=== PATIENT | male | born 1930 | race Caucasian/White ===

== ENCOUNTER 2017-08-08 15:36 | Inpatient (IN) | payer MEDICARE, OTHER ==
[~2017-08-08] VITALS: Ht 177.8 cm; Wt 116.6 kg
[~2017-08-08 15:36] MED LIST: ALLA266C2 TP; ALLO300T2 PO; ASCO10007 PO; CALC-1062 PO; CLOT15CR4 TP; CYAN500T4 PO; DIGO125T PO; DILT360C32 PO; FURO-144 PO; FURO80TA85 PO; HYDR-551 PO; IBUP-1958 PO; LISI10TA5 PO; METO2.5T2 PO; MULT1TAB11 PO; POTA20PA34 PO; SULF1TAB47 PO; TIOT18CA3 IH; VITA400C68 PO; WARF5TAB77 PO
--- NOTE | 2017-08-08 16:10 | NUR ---
RECIEVED PT TO ED BED 05, ASSISTED VIA WHEELCHAIR. 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 PT C/O 10 PAIN TO BLE. BLE WRAPPED IN KAREN WRAP. NAD VSS RR EVEN AND UNLABORED. KEPT WARM AND COMFORTABLE. SEEN AND EVALUATED BY DR BUTTERFIELD
[2017-08-08] MEDS ORDERED: VANCOMYCIN 1 GM in IV D5W 250 ML IV ONE (16:30)
[2017-08-08] MEDS ORDERED: LEVOFLOXACIN 750 MG /D5W 150ML 150 ML IV ONE ×2 (16:30→16:41)
--- NOTE | 2017-08-08 16:42 | NUR ---
CALLED PHARMACY FOR GWEN THOMAS
[2017-08-08 16:43] LABS: BASOPHILS % (AUTO) 0.7 % (0.0-2.0); EOSINOPHILS # (AUTO) 0.3 /CMM (0.0-0.7); EOSINOPHILS % (AUTO) 5.4 % (0.0-6.0); HEMATOCRIT 40 % (39-51); HEMOGLOBIN 12.8 g/dL (13.5-17.5); LYMPHOCYTES # (AUTO) 1.4 /CMM (0.8-4.8); LYMPHOCYTES % (AUTO) 26.4 % (20.0-44.0); MEAN CORPUSCULAR HEMOGLOBIN 33 PG (26.0-33.0); MEAN CORPUSCULAR HGB CONC 32 g/dl (31.0-36.0); MEAN CORPUSCULAR VOLUME 101 fL (80-96); MONOCYTES # (AUTO) 0.8 /CMM (0.1-1.30); NEUTROPHILS # (AUTO) 2.7 /CMM (1.8-8.9); NEUTROPHILS % (AUTO) 52.5 % (43.0-81.0); PLATELET COUNT (AUTO) 296 /CMM (150-450); RDW COEFFICIENT OF VARIATION 16.6 (11.5-15.0); RED BLOOD CELL COUNT(AUTO) 3.91 MIL/uL (4.5-6.0); WHITE BLOOD COUNT (AUTO) 5.2 K/uL (4.3-11.0)
[2017-08-08 16:53] LABS: CARBON DIOXIDE 35 mmol/L (21-32); CHLORIDE 107 mmol/L (98-107); CREATININE 1.2 mg/dL (0.6-1.3); GLUCOSE 125 mg/dL (74-106); SODIUM SERUM 144 mmol/L (136-145); UREA NITROGEN, BLOOD 18 mg/dL (7-18)
[2017-08-08] MEDS ORDERED: FURO40TA5 PO (16:54)
[2017-08-08] MEDS ORDERED: TRAZ-144 PO (16:54)
[2017-08-08] MEDS ORDERED: FENO48TA PO (16:54)
[2017-08-08] MEDS ORDERED: CRAN500T2 PO (16:54)
[2017-08-08] MEDS ORDERED: ALBU18HF2 IH (16:54)
[2017-08-08] MEDS ORDERED: FOLI1TAB16 PO (16:54)
[2017-08-08] MEDS ORDERED: POTA20TA83 PO (16:54)
[2017-08-08] MEDS ORDERED: TAMS0.4C34 PO (16:54)
[2017-08-08] MEDS ORDERED: DILT30TA2 PO (16:54)
[2017-08-08] MEDS ORDERED: FAMO20TA8 PO (16:54)
[2017-08-08] MEDS ORDERED: HYDR-552 PO ×2 (16:54)
[2017-08-08] MEDS ORDERED: WARF4TAB6 PO (16:54)
[2017-08-08] MEDS ORDERED: ALBU2.5V38 IH (16:54)
[2017-08-08] MEDS ORDERED: DOCU-141 PO (16:54)
[2017-08-08] MEDS ORDERED: BUME1TAB4 PO (16:54)
[2017-08-08] MEDS ORDERED: POLY119P2 PO (16:54)
[2017-08-08] MEDS ORDERED: CEPH-570 PO (16:54)
[2017-08-08] MEDS ORDERED: CARV3.122 PO (16:54)
[2017-08-08 16:59] LABS: ALANINE AMINOTRANSFERASE 22 U/L (12-78); ALBUMIN 2.9 g/dL (3.4-5.0); ALKALINE PHOSPHATASE 58 U/L (46-116); ASPARTATE AMINOTRANSFERASE 17 U/L (15-37); BILIRUBIN,DIRECT 0.2 mg/dL (0.0-0.2); BILIRUBIN,TOTAL 0.4 mg/dL (0.2-1.0); TOTAL PROTEIN, SERUM 7.1 g/dL (6.4-8.2)
[2017-08-08 17:01] LABS: TROPONIN I < 0.017 ng/mL (0.00-0.056)
[2017-08-08 17:02] LABS: INR 2.64 (0.87-1.13); PROTHROMBIN TIME 27.7 SECS (9.5-12.7)
--- NOTE | 2017-08-08 17:11 | NUR ---
MEDSURGE ROOM 203
[2017-08-08 17:15] LABS: EOSINOPHILS % (MANUAL) 4 % (0-4); LYMPHOCYTES % (MANUAL) 20 % (16-48); MONOCYTES % (MANUAL) 7 % (0-11.0); NEUTROPHILS % (MANUAL) 69 (42-76)
--- NOTE | 2017-08-08 17:33 | NUR ---
REPORT GIVEN TO GUS CORCORAN
--- NOTE | 2017-08-08 17:44 | NUR ---
TRANSFERRED TO FLOOR IN STABLE CONDITION
[2017-08-08] MEDS ORDERED: Z GUARD REMEDY 2 OZ OINT TP PRN (18:00)
[2017-08-08] MEDS ORDERED: ALBUTEROL FS 2.5 MG/3 ML VIAL.NEB IH PRN (18:00)
[2017-08-08] MEDS ORDERED: MAG HYDROX/AL HYDROX/SIMETH 30 ML UDC PO PRN (18:00)
[2017-08-08] MEDS ORDERED: ZOLPIDEM TARTRATE 5 MG TABLET PO PRN (18:00)
[2017-08-08] MEDS ORDERED: ACETAMINOPHEN 325 MG TABLET PO PRN (18:00)
[2017-08-08] MEDS ORDERED: ONDANSETRON HCL/PF 4 MG/2 ML VIAL IVP PRN (18:00)
[2017-08-08] MEDS ORDERED: MAGNESIUM HYDROXIDE 30 ML UDC PO PRN (18:00)
--- NOTE | 2017-08-08 18:02 | NUR ---
CASANDRA ENDORSED TO ADMITTING NURSE
--- NOTE | 2017-08-08 19:16 | NUR ---
telescope operator notes Spoke to Dr. Mcmanus regarding admission orders and diet order and per MD to transfer patient to Tele 3rd floor and informed RN records supervisor and made aware. Report given to [facility] receiving nurse. Transferred patient with no signs and symptoms of distress and SOB. Endorsed.
--- NOTE | 2017-08-08 19:30 | NUR ---
TRUSTEE OF ESTATE OPENING NOTES: RECEIVED PT FROM MS 2 NURSE, GUS CORCORAN. PT HAS IV ON R AC #20G AND IS BEING INFUSED WITH LEVAQUIN. NO SOB NOTED AT THIS TIME. NO S/S OF DISTRESS NOTED AT THIS TIME. NOTED BILATERAL LOWER LEGS COVERED WITH KAREN BANDAGE. NO COMPLAINTS OF PAIN AT THIS TIME. CALL LIGHT WITHIN PT'S REACH. BED KEPT IN LOW, LOCKED POSITION, AND SIDE RAILS X 2 UP. PT IN SEMI CHAPARRO'S POSITION. WILL CONTINUE TO MONITOR PT.
--- NOTE | 2017-08-08 19:30 | NUR ---
CARBON PAPER INTERLEAFER NOTES: CASANDRA WAS ALREADY RUNNING BY PREVIOUS NURSE WHO TRANSFERRED HIM. MANUALLY ADMINISTERED.
[2017-08-08 20:00] VITALS: BP 146/59
[2017-08-08] MEDS: FAMOTIDINE (20 MG) 20 MG TABLET PO SCH (20:13)
[2017-08-08] MEDS: WARFARIN SODIUM 2 MG TABLET PO SCH (20:14)
[2017-08-08] MEDS: IV NS 0.9% 1,000 ML IV PRN (20:19)
[2017-08-08] MEDS: ALBUTEROL FS 2.5 MG/0.5 ML VIAL.NEB NEB SCH ×2 (20:20→22:56)
[2017-08-08] MEDS: TRAZODONE 50 MG TABLET PO SCH (21:17)
[2017-08-08] MEDS: DOCUSATE SODIUM 100 MG CAPSULE PO SCH (21:17)
[2017-08-08] MEDS: CYANOCOBALAMIN 500 MCG TABLET PO SCH (21:17)
[2017-08-08] MEDS: TAMSULOSIN 0.4 MG CAP.SR.24H PO SCH (21:17)
[2017-08-09] VITALS: BP 96/50
[2017-08-09] MEDS: ALBUTEROL FS 2.5 MG/0.5 ML VIAL.NEB NEB SCH ×5 (03:43→20:10)
[2017-08-09 04:00] VITALS: BP 107/66
--- NOTE | 2017-08-09 07:43 | NUR ---
FOUNDER CHAIRMAN AND CHIEF CREATIVE OFFICER CLOSING NOTES: ALL NEEDS WERE ATTENDED AND ANTICIPATED FOR. PT IS AWAKE AND IS A/OX4. PT IS ON 2LPM VIA NC AND IS TOLERATING WELL. PT IN SEMI-CHAPARRO'S POSITION. NO SOB NOTED AT THIS TIME. NO S/S OF DISTRESS NOTED AT THIS TIME. BILATERAL LOWER LEGS COVERED WITH KAREN BANDAGES. NO COMPLAINTS OF PAIN AT THIS TIME. PT ON TELE BOX AND IS A FIB CONTROLLED 80S. CALL LIGHT WITHIN PT'S REACH. BED KEPT IN LOW, LOCKED POSITION, AND SIDE RAILS X 2 UP. WOUND CULTURE OF LEFT AND RIGHT FOOT COLLECTED AND SENT TO LAB. ENDORSED TO AM NURSE FOR JJ.
[2017-08-09 07:51] LABS: BASOPHILS % (AUTO) 0.6 % (0.0-2.0); EOSINOPHILS # (AUTO) 0.2 /CMM (0.0-0.7); EOSINOPHILS % (AUTO) 3.9 % (0.0-6.0); HEMATOCRIT 37 % (39-51); HEMOGLOBIN 12.1 g/dL (13.5-17.5); LYMPHOCYTES % (AUTO) 16.6 % (20.0-44.0); MEAN CORPUSCULAR HEMOGLOBIN 33 PG (26.0-33.0); MEAN CORPUSCULAR HGB CONC 33 g/dl (31.0-36.0); MEAN CORPUSCULAR VOLUME 102 fL (80-96); MONOCYTES # (AUTO) 0.7 /CMM (0.1-1.30); MONOCYTES % (AUTO) 11.1 % (2.0-12.0); NEUTROPHILS # (AUTO) 4.2 /CMM (1.8-8.9); NEUTROPHILS % (AUTO) 67.8 % (43.0-81.0); PLATELET COUNT (AUTO) 237 /CMM (150-450); RDW COEFFICIENT OF VARIATION 16.8 (11.5-15.0); RED BLOOD CELL COUNT(AUTO) 3.64 MIL/uL (4.5-6.0); WHITE BLOOD COUNT (AUTO) 6.2 K/uL (4.3-11.0)
[2017-08-09 08:00] VITALS: BP 110/69
--- NOTE | 2017-08-09 08:01 | NUR ---
RN INITIAL NOTES RECEIVED RESIDENT LAYING IN BED W/ HOB ELEVATED. A/O X4, RESPIRATIONS ARE EVEN AND UNLABORED, NOT IN ANY ACUTE DISTRESS NOTED. BLE ARE WRAPPED WITH KAREN BANDAGES, W/ NO C/O PAIN AT THIS TIME. PT KEPT COMFORTABLE. REMINDED PT TO USE CALL LIGHT WHEN ASSISTANCE IS NEEDED, CALL LIGHT IS LEFT WITHIN REACH. WILL CONTINUE TO MONITOR DURING SHIFT.
[2017-08-09 08:19] LABS: CALCIUM, SERUM 8.7 mg/dL (8.5-10.1); CARBON DIOXIDE 31 mmol/L (21-32); CHLORIDE 105 mmol/L (98-107); CREATININE 1.4 mg/dL (0.6-1.3); GLUCOSE 103 mg/dL (74-106); MAGNESIUM 1.9 mg/dL (1.8-2.4); PHOSPHORUS 3.2 mg/dL (2.5-4.9); POTASSIUM 3.6 mmol/L (3.5-5.1); SODIUM SERUM 142 mmol/L (136-145); UREA NITROGEN, BLOOD 21 mg/dL (7-18)
[2017-08-09] MEDS: DIGOXIN 0.125 MG TABLET PO SCH ×2 (08:56→13:35)
[2017-08-09] MEDS: FOLIC ACID 1 MG TABLET PO SCH (08:56)
[2017-08-09] MEDS: FAMOTIDINE (20 MG) 20 MG TABLET PO SCH ×2 (08:56→17:03)
[2017-08-09] MEDS: DOCUSATE SODIUM 100 MG CAPSULE PO SCH ×2 (08:56→21:49)
[2017-08-09] MEDS: DILTIAZEM HCL 30 MG TABLET PO SCH ×3 (08:57→17:04)
[2017-08-09] MEDS: CARVEDILOL 3.125 MG TABLET PO SCH ×2 (08:57→17:04)
[2017-08-09] MEDS ORDERED: BUMETANIDE (1 MG) 1 MG TABLET PO SCH (09:00)
--- NOTE | 2017-08-09 10:26 | NUR ---
WOUND CARE CONSULT: PT PRESENTS WITH RED, SWOLLEN WARM LEGS WITH SOME OPEN AREAS TO DORSAL FEET AND FRAGILE AREAS OF FLAKY SKIN WITH TINY SCABS TO LOWER LEGS, PRESENT ON ADMISSION. PODIATRY CONSULT WAS CALLED BY . RECOMMEND BARIMAX BED. ALL SKIN PROTECTION AND WOUND RECOMMENDATIONS DISCUSSED WITH NURSING STAFF. WILL SEE PRN. OTT IN AGREEMENT WITH PLAN OF CARE. Addendum: 08/09/17 at 1028 by KELSEY REAL WNDNU Amended: Links added.
[2017-08-09] MEDS: Fenofibrate 48 MG TABLET PO SCH (10:42)
[2017-08-09] MEDS: FUROSEMIDE 40 MG/4 ML VIAL IV SCH ×2 (10:42→17:04)
[2017-08-09] MEDS: IV NS 0.9% 1,000 ML IV PRN (13:34)
[2017-08-09 16:00] VITALS: BP 109/64
[2017-08-09] MEDS ORDERED: SALINE NASAL SPRAY 0.65% 1 BOTTLE BOTTLE NS PRN (17:00)
--- NOTE | 2017-08-09 18:24 | NUR ---
Spoke with norman Cheema, patient resides at the [facility] [phone]. He was ambulating in slow gait with the aide o a walker and uses power wheelchair to mobilized around. Patient will return the the [facility] per daughter under [facility] - [facility] intake [phone]. Family involved and supportive with plan of care. Addendum: 08/09/17 at 1824 by VALARIE DÍAZ RN Amended: Links added.
[2017-08-09 18:30] LABS: INR 2.56 (0.87-1.13); PROTHROMBIN TIME 26.9 SECS (9.5-12.7)
[2017-08-09] MEDS: WARFARIN SODIUM 2 MG TABLET PO SCH (18:38)
--- NOTE | 2017-08-09 18:52 | NUR ---
RN MS CLOSING NOTES ALL NEEDS ANTICPATED AND RENDERED. A/O X4, RESPIRATIONS ARE EVEN AND UNLABORED, NOT IN ANY ACUTE DISTRESS NOTED. PT DENIES ANY PAIN AT THIS TIME. PT WAS SEEN AND EXAMINED BY WOUND NURSE AND PATIENT FINANCIAL SERVICES SPECIALIST AND PERFORMED DEBRIDEMENT TO LEFT FOOT WOUND. PT TOLERATED PROCEDURE WELL. ENCOURAGED PT TO CONTINUE TO ELEVATE BLE TO DECREASE EDEMA AND IS COMPLIANT. EDUCATED PT TO INCREASE PROTEIN INTAKE TO ENHANCE WOUND HEALING. WILL ENDORSE TO NEXT SHIFT FOR CONTINUITY OF CARE.
--- NOTE | 2017-08-09 19:25 | NUR ---
RN OPEN NOTES RECEIVED PATIENT AWAKE IN BED. A/O X4. NO SIGNS OF DISTRESS OR DISCOMFORT. BREATHING EVEN AND UNLABORED. ON 2LPM O2 VIA NC. IV ACCESS IN RAC WITH NS INFUSING, PATENT AND INTACT, NO SIGNS OF REDNESS OR INFILTRATION. DRESSING ON LLE C/D/I. BED IN LOW LOCKED POSITION WITH SIDE RAILS X3. CALL LIGHT WITHIN REACH. WILL CONTINUE TO MONITOR.
[2017-08-09 20:00] VITALS: BP 98/52
[2017-08-09] MEDS: TRAZODONE 50 MG TABLET PO SCH (21:48)
[2017-08-09] MEDS: TAMSULOSIN 0.4 MG CAP.SR.24H PO SCH (21:49)
[2017-08-09] MEDS: CYANOCOBALAMIN 500 MCG TABLET PO SCH (21:49)
[2017-08-10] MEDS: ALBUTEROL FS 2.5 MG/0.5 ML VIAL.NEB NEB SCH ×6 (00:03→20:08)
[2017-08-10] MEDS: IV NS 0.9% 1,000 ML IV PRN (05:28)
--- NOTE | 2017-08-10 06:52 | NUR ---
RN CLOSING NOTES PATIENT RESTING IN CHAIR, EASILY AROUSABLE. A/O X4. NO SIGNS OF DISTRESS OR DISCOMFORT. BREATHING EVEN AND UNLABORED. ON 2LPM O2 VIA NC. IV ACCESS IN RAC WITH NS INFUSING, PATENT AND INTACT, NO SIGNS OF REDNESS OR INFILTRATION. DRESSING ON LLE C/D/I BOTH LOWER EXTREMITIES ELEVATED. ALL NEEDS MET. NO SIGNIFICANT CHANGES THROUGH THE NIGHT. BED IN LOW LOCKED POSITION WITH SIDE RAILS X3. CALL LIGHT WITHIN REACH. WILL ENDORSE TO AM SHIFT FOR JJ. .
--- NOTE | 2017-08-10 07:45 | NUR ---
RN MS INITIAL NOTES RECEIVED PT UP IN CHAIR. AWAKE, ALERT AND ORIENTED X4. RESPIRATIONS ARE EVEN AND UNLABORED, NOT IN ANY ACUTE DISTRESS NOTED. DENIES ANY PAIN AT THIS TIME. REMINDED PT TO ELEVATE LEGS TO REDUCE SWELLING TO BLE. ASSISTED PT WITH LEG ELEVATION. IV TO RAC STILL INTACT, WITH NO INFILTRATION OR S/SX OFINFECTION TO SITE. DRESSING TO LEFT FOOT INTACT. MRSA CULTURE RESULTS STILL PENDING. REMINDED PT AND SUPERVISOR OF OFFICIALS TO REPOSITION Q2HRS WHILE IN BED TO REDUCE RISK OF SKIN INJURY AND OFFLOAD HEALS. REMINDED PT TO USE CALL LIGHT WHEN ASSISTANCE IS NEEDED. WILL CONTINUE TO MONITOR THROUGHOUT SHIFT.
[2017-08-10 08:00] VITALS: BP_SYST 100; BP_SYST 133; BP_DIAS 66; BP_DIAS 69
[2017-08-10 08:29] LABS: INR 2.21 (0.87-1.13); PROTHROMBIN TIME 23.2 SECS (9.5-12.7)
[2017-08-10] MEDS: DILTIAZEM HCL 30 MG TABLET PO SCH ×3 (08:30→17:22)
[2017-08-10] MEDS: Fenofibrate 48 MG TABLET PO SCH (08:30)
[2017-08-10] MEDS: CARVEDILOL 3.125 MG TABLET PO SCH ×2 (08:31→17:23)
[2017-08-10] MEDS: FAMOTIDINE (20 MG) 20 MG TABLET PO SCH ×2 (08:31→17:22)
[2017-08-10] MEDS: DOCUSATE SODIUM 100 MG CAPSULE PO SCH ×2 (08:31→20:58)
[2017-08-10] MEDS: FOLIC ACID 1 MG TABLET PO SCH (08:31)
[2017-08-10] MEDS ORDERED: VITAMINS A AND D 56.7 GM TUBE TP PRN (12:30)
--- NOTE | 2017-08-10 12:30 | NUR ---
RN MS NOTES CALLED ULTRASOUND FOR DOPPLER AND ECHOCARDIOGRAM ORDERS. PER TECH, WILL FOLLOW UP ORDERS. WILL CONTINUE TO MONITOR PT AT THIS TIME.
[2017-08-10] MEDS: DIGOXIN 0.125 MG TABLET PO SCH (12:33)
[2017-08-10] MEDS: HYDROCODONE/APAP 5/325MG 1 EACH TABLET PO PRN (12:44)
[2017-08-10 16:00] VITALS: BP 131/69
[2017-08-10] MEDS: WARFARIN SODIUM 2 MG TABLET PO SCH (17:24)
--- NOTE | 2017-08-10 18:36 | NUR ---
RN MS CLOSING NOTE ALL NEEDS MET AND RENDERED. REMAINS X/O X4, RESPIRATIONS ARE EVEN AND UNLABORED, NOT IN ANY ACUTE DISTRESS NOTED. DENIES ANY PAIN AT THIS TIME. PERIPHERAL IV TO RAC STILL INTACT. DRESSING KEPT CLEAN AND DRY. REPOSITIONED PT Q2H FOR COMFORT AND PREVENT PRESSURE INJURY. MAINTAIN HOB ELEVATED TO FACILITATE BREATHING. SPO2 REMAINS >93% @2L/MIN. ALL DUE MEDICATIONS GIVEN. REMINDED PT TO USE CALL LIGHT WHEN ASSISTANCE IS NEEDED, CALL LIGHT IS LEFT WITHIN REACH. WILL ENDORSE TO NEXT SHIFT FOR CONTINUITY OF CARE.
--- NOTE | 2017-08-10 19:20 | NUR ---
RN MS - INITIAL NOTES RECEIVED PATIENT IN BED CURRENTLY SLEEPING BUT EASILY AROUSE. NO S/S OF SOB OR ANY DISCOMFORT NOTED. PATIENT INSTRUCTED TO USE CALL LIGHT WHEN ASSISTANCE IS NEEDED. BED IN LOW POSITION AND LOCKED. SIDERAILS X2 UP. WILL CONTINUE TO MONITOR PATIENT.
[2017-08-10 20:00] VITALS: BP_SYST 122; BP_SYST 123; BP_DIAS 58; BP_DIAS 68
[2017-08-10] MEDS: CYANOCOBALAMIN 500 MCG TABLET PO SCH (20:57)
[2017-08-10] MEDS: TAMSULOSIN 0.4 MG CAP.SR.24H PO SCH (20:58)
[2017-08-10] MEDS: TRAZODONE 50 MG TABLET PO SCH (20:58)
[2017-08-11] MEDS: HYDROCODONE/APAP 5/325MG 1 EACH TABLET PO PRN (00:22)
[2017-08-11] MEDS: ALBUTEROL FS 2.5 MG/0.5 ML VIAL.NEB NEB SCH ×5 (02:38→16:16)
--- NOTE | 2017-08-11 06:58 | NUR ---
RN MS - CLOSING NOTES PATIENT IN CHAIR, NO SIGNIFICANT CHANGES NOTED. DRESSING ON THE RIGHT FOOT REMAINS DRY AND INTACT. CALL LIGHT IS WITHIN REACH. WILL ENDORSE TO MORNING NURSE FOR CONTINUITY OF CARE.
[2017-08-11 08:00] VITALS: BP 122/57
--- NOTE | 2017-08-11 08:00 | NUR ---
RN OPENING NOTES RECEIVED PATIENT RESTING AT THE BED SIDE SITTING UP RIGHT IN CHAIR. DENIES ANY PAIN AT THIS TIME. NO CP, MILD SOB. PATIENT SATURATING ADEQUATELY ON HUMIDIFY O2 AT 4LPM VIA NC. RESPIRATIONS EVEN AND UNLABORED. NO ACUTE DISTRESS. IV ACCESS ON THE RAC 20 G PATENT AND INTACT. BED LOCKED IN THE LOWEST POSITION. SIDE RAILS UP X2. CALL LIGHT WITHIN REACH. WILL CONTINUE TO MONITOR, ASSESS AND EDUCATE PATIENT THROUGHOUT SHIFT.
[2017-08-11 08:05] LABS: INR 2.36 (0.87-1.13); PROTHROMBIN TIME 24.8 SECS (9.5-12.7)
[2017-08-11] MEDS ORDERED: NEOMY SULF/BACITRAC ZN/POLY 15 GM TUBE TP SCH (09:00)
[2017-08-11] MEDS: Fenofibrate 48 MG TABLET PO SCH (09:39)
[2017-08-11] MEDS: DOCUSATE SODIUM 100 MG CAPSULE PO SCH (09:39)
[2017-08-11] MEDS: FOLIC ACID 1 MG TABLET PO SCH (09:39)
[2017-08-11] MEDS: FAMOTIDINE (20 MG) 20 MG TABLET PO SCH (09:39)
[2017-08-11] MEDS: DILTIAZEM HCL 30 MG TABLET PO SCH ×2 (09:40→15:06)
[2017-08-11] MEDS: CARVEDILOL 3.125 MG TABLET PO SCH (09:40)
[2017-08-11] MEDS: DIGOXIN 0.125 MG TABLET PO SCH (15:03)
[2017-08-11 16:00] VITALS: BP 118/57
--- NOTE | 2017-08-11 17:15 | NUR ---
RN CLOSING NOTES PATEINT DISCHARGED IN STABLE CONDITION TO [facility] HOSP[facility]. ALL NEEDS MET. ALL MEDS GIVEN. NO ACUTE DISTRESS. DENIES SOB. ALL DISCHARGE TEACHING COMPLETED. PATIENT BELONGS ACCOUNTED FOR. ALL EXITCARE PROVIDED AND SIGNED. PATIENT TAKEN BY DAUGHTER TO FACILITY. ALL WOUND CARE COMPLETED.
== END 2017-08-11 17:16 | disposition hospice, home (50) | DRG 570 ==
LOC: ER 15:38 → MEDSG2 17:53 → TELE 19:19 → MED 08-09 09:07
PROVIDERS: ADMIT Internal Medicine; ATTEND Internal Medicine
PROC: 0JBP0ZZ Excision of Left Lower Leg Subcutaneous Tissue and Fascia, Open Approach (ICD-10-PCS; principal; 2017-08-09)
DX: L03.116 Cellulitis of left lower limb (principal); I50.43 Acute on chronic combined systolic (congestive) and diastolic (congestive) heart failure; E44.0 Moderate protein-calorie malnutrition; D68.59 Other primary thrombophilia; G62.9 Polyneuropathy, unspecified; E66.01 Morbid (severe) obesity due to excess calories; F11.20 Opioid dependence, uncomplicated; I48.91 Unspecified atrial fibrillation; L97.919 Non-pressure chronic ulcer of unspecified part of right lower leg with unspecified severity; L97.929 Non-pressure chronic ulcer of unspecified part of left lower leg with unspecified severity; L03.115 Cellulitis of right lower limb; E03.9 Hypothyroidism, unspecified; E11.9 Type 2 diabetes mellitus without complications; E78.5 Hyperlipidemia, unspecified; G89.4 Chronic pain syndrome; I11.0 Hypertensive heart disease with heart failure; I25.10 Atherosclerotic heart disease of native coronary artery without angina pectoris; J44.9 Chronic obstructive pulmonary disease, unspecified; K21.9 Gastro-esophageal reflux disease without esophagitis; M48.00 Spinal stenosis, site unspecified; Z79.899 Other long term (current) drug therapy; Z85.46 Personal history of malignant neoplasm of prostate; Z87.891 Personal history of nicotine dependence; Z96.649 Presence of unspecified artificial hip joint; Z88.0 Allergy status to penicillin; M10.9 Gout, unspecified; Z79.01 Long term (current) use of anticoagulants; Z68.36 Body mass index [BMI] 36.0-36.9, adult; L98.8 Other specified disorders of the skin and subcutaneous tissue; S00.01XA Abrasion of scalp, initial encounter; X58.XXXA Exposure to other specified factors, initial encounter; Y93.9 Activity, unspecified; Y92.89 Other specified places as the place of occurrence of the external cause; B95.2 Enterococcus as the cause of diseases classified elsewhere; B95.62 Methicillin resistant Staphylococcus aureus infection as the cause of diseases classified elsewhere; Z88.8 Allergy status to other drugs, medicaments and biological substances; I87.8 Other specified disorders of veins
CPT/HCPCS: 36415; 71010-TC; 80048-TC; 80076-TC; 80162-TC; 83605-TC; 83735-TC; 84100-TC; 84484-TC; 85025-TC; 85610-TC; 85730-TC; 87040-TC; 87070-TC; 87081-TC; 87186-TC; 93307-TC; 93970-TC; 94799-TC; A4606; A6402; A6403; J1940; J1956; J3370; J7030; J7060; Z7610

== ENCOUNTER 2017-09-26 18:37 | Inpatient (IN) | payer MEDICARE, OTHER ==
[~2017-09-26] VITALS: Ht 175.3 cm; Wt 126.1 kg
[~2017-09-26 18:37] MED LIST changes: +ALBU18HF2 IH; +ALBU2.5V38 IH; -ALLA266C2 TP; +BUME1TAB4 PO; -CALC-1062 PO; +CARV3.122 PO; -CLOT15CR4 TP; +CRAN500T2 PO; +DILT30TA2 PO; -DILT360C32 PO; +DOCU-141 PO; +FAMO20TA8 PO; +FENO48TA PO; +FOLI1TAB16 PO; -FURO-144 PO; +FURO40TA5 PO; -FURO80TA85 PO; -HYDR-551 PO; +HYDR-552 PO; -IBUP-1958 PO; -LISI10TA5 PO; -METO2.5T2 PO; -MULT1TAB11 PO; +POLY119P2 PO; -POTA20PA34 PO; +POTA20TA83 PO; -SULF1TAB47 PO; +TAMS0.4C34 PO; -TIOT18CA3 IH; +TRAZ-144 PO; +WARF4TAB6 PO; -WARF5TAB77 PO
--- NOTE | 2017-09-26 18:40 | NUR ---
AAOX3, BIB FAMILY FOR SOB. PATIENT IS NORMALLY ON O2 AT HOME AT 4-5L/MIN. TACHYPNEIC. SKIN IS WARM AND DRY. PLACED ON 02 NC AT 4L/MIN. PLACED ON THE MONITOR. WILL CONTINUOUSLY MONITOR THE PATIENT. DR MATOS AT FOR EVAL.
[2017-09-26 18:54] LABS: BASOPHILS # (AUTO) 0.3 /CMM (0.0-0.2); BASOPHILS % (AUTO) 3.7 % (0.0-2.0); EOSINOPHILS # (AUTO) 0.3 /CMM (0.0-0.7); EOSINOPHILS % (AUTO) 4.4 % (0.0-6.0); HEMATOCRIT 36 % (39-51); HEMOGLOBIN 12.2 g/dL (13.5-17.5); LYMPHOCYTES # (AUTO) 1.1 /CMM (0.8-4.8); LYMPHOCYTES % (AUTO) 14.5 % (20.0-44.0); MEAN CORPUSCULAR HEMOGLOBIN 33 PG (26.0-33.0); MEAN CORPUSCULAR HGB CONC 34 g/dl (31.0-36.0); MEAN CORPUSCULAR VOLUME 99 fL (80-96); MONOCYTES # (AUTO) 0.4 /CMM (0.1-1.30); MONOCYTES % (AUTO) 4.9 % (2.0-12.0); NEUTROPHILS # (AUTO) 5.6 /CMM (1.8-8.9); NEUTROPHILS % (AUTO) 72.5 % (43.0-81.0); PLATELET COUNT (AUTO) 157 /CMM (150-450); RDW COEFFICIENT OF VARIATION 14.9 (11.5-15.0); RED BLOOD CELL COUNT(AUTO) 3.68 MIL/uL (4.5-6.0); WHITE BLOOD COUNT (AUTO) 7.7 K/uL (4.3-11.0)
[2017-09-26] MEDS ORDERED: ASPIRIN 81 MG TAB.CHEW ONE (18:58)
[2017-09-26] MEDS ORDERED: FUROSEMIDE 40 MG/4 ML VIAL ONE (18:58)
[2017-09-26] MEDS ORDERED: NITROGLYCERIN PACKET 1 GM PACKET ONE (18:58)
[2017-09-26] MEDS ORDERED: ASPIRIN 81 MG TAB.CHEW PO ONE (19:00)
[2017-09-26] MEDS ORDERED: FUROSEMIDE 40 MG/4 ML VIAL IV ONE ×2 (19:00→22:00)
[2017-09-26] MEDS ORDERED: NITROGLYCERIN PACKET 1 GM PACKET TD ONE (19:00)
[2017-09-26 19:04] LABS: CALCIUM, SERUM 8.8 mg/dL (8.5-10.1); CARBON DIOXIDE 36 mmol/L (21-32); CHLORIDE 103 mmol/L (98-107); CREATININE 0.9 mg/dL (0.6-1.3); GLUCOSE 130 mg/dL (74-106); SODIUM SERUM 141 mmol/L (136-145); UREA NITROGEN, BLOOD 14 mg/dL (7-18)
[2017-09-26 19:08] LABS: INR 1.61 (0.85-1.15)
[2017-09-26] MEDS ORDERED: IPRA3AMP IH ×2 (19:08)
[2017-09-26] MEDS ORDERED: METH2.5T PO (19:08)
[2017-09-26 19:12] LABS: TROPONIN I < 0.017 ng/mL (0.00-0.056)
[2017-09-26 19:16] LABS: ALANINE AMINOTRANSFERASE 16 U/L (12-78); ALBUMIN 2.9 g/dL (3.4-5.0); ALKALINE PHOSPHATASE 68 U/L (46-116); ASPARTATE AMINOTRANSFERASE 19 U/L (15-37); B-TYPE NATRIURETIC PEPTIDE 1475 PG/ML (0-125); BILIRUBIN,DIRECT 0.3 mg/dL (0.0-0.2); BILIRUBIN,TOTAL 0.8 mg/dL (0.2-1.0); TOTAL PROTEIN, SERUM 7.1 g/dL (6.4-8.2)
[2017-09-26] MEDS: FUROSEMIDE 100 MG/10 ML VIAL IV SCH ×2 (19:30→23:48)
--- NOTE | 2017-09-26 20:20 | NUR ---
report called to tele JORGE egan. will transport pt via acls protocol.
--- NOTE | 2017-09-26 20:30 | NUR ---
er spoke to dr. marcus regarding pt admission.
--- NOTE | 2017-09-26 20:38 | NUR ---
DR. ARRIOLA BEDSIDE WITH PT AND FAMILY MEMBER
[2017-09-26 21:00] VITALS: BP 123/82
[2017-09-26 21:30] VITALS: BP 123/82
[2017-09-26] MEDS ORDERED: FUROSEMIDE 40 MG/4 ML VIAL IV SCH (21:30)
[2017-09-26] MEDS ORDERED: NITROGLYCERIN 0.4 MG/TAB BOTTLE SL PRN (21:30)
--- NOTE | 2017-09-26 21:30 | NUR ---
TELE HOME HEALTH NURSE INITIAL NOTES ADMIT PT FROM ER VIA [facility] ACCOMPANIED BY ER NURSE AND HIS DAUGHTER. DX OF CHF. PT IS ALERT ORIENTED X4, AWARE THAT HE'S HERE BEFORE AND SAME ROOM. PT PLEASANT, NO SIGNS OF ANY ACUTE DISTRESS NOTED. HE HAVE O2 AT 4 LITERS VIA NC . NOTED PT EDEMA ON BOTH LOWER LEGS AND CELLULITIS. OFFLOAD BOTH LEGS ON PILLOWS. ASSESSMENT DONE AND RECORDED. KEPT HIM WARM AND COMFORTABLE AT ALL TIMES. TELE AFIB WITH OCCASIONAL PVC'S HEART RATE [address] CALL LIGHT AT REACH. WILL CONTINUE TO MONITOR.
[2017-09-26 22:02] LABS: ABG BASE EXCESS 6.8 mmol/L; ABG PCO2 53.5 mmHg (35.0-45.0); ABG PO2 109.9 mmHg (75.0-100.0); AaDO2 113.8 mmHg; COHb 1.3 % (0.5-1.5); MetHb 0.2 % (0.0-1.5); O2Hb 96.3 % (94.0-97.0); SITE, ABG Right Radial; VENT MODE, BG N/C
[2017-09-26] MEDS ORDERED: WARFARIN SODIUM 2 MG TABLET PO ONE (23:30)
--- NOTE | 2017-09-26 23:45 | NUR ---
RN NOTES ONE TIME DOSE OF LASIX SCHEDULED AT 2200 WAS NOT ADMINISTERED. DIFFERENT ORDER WAS GIVEN FOR LASIX 80MG/8ML SCHEDULED AT 2345.
[2017-09-27] VITALS: BP 130/79
[2017-09-27 04:00] VITALS: BP 118/65
[2017-09-27] MEDS: FUROSEMIDE 100 MG/10 ML VIAL IV SCH ×4 (04:31→16:45)
[2017-09-27 04:50] VITALS: BP 118/65
--- NOTE | 2017-09-27 05:27 | NUR ---
TELE BREEDING MANAGER NOTES PT WOKE UP AND REQUESTING TO HAVE A TRAPEZE TO SUPPORT FOR HIM TO GET UP . DENIES ANY PAIN OR ANY DISCOMFORT. SPOKE TO HIM THAT I WILL REQUEST AND LET HIS MD KNOW ABOUT IT. NO SOB NOTED AT THIS TIME. KEPT HIM WARM AND COMFORTABLE AT ALL TIMES. TELE A-FIB PER MONITOR. PLACE CALL LIGHT AT REACH.
--- NOTE | 2017-09-27 07:14 | NUR ---
TELE SENIOR ORACLE SOA DEVELOPER CLOSING NOTES PT RESTING AT THIS TIME, NO SIGNS OF ANY ACUTE DISTRESS NOTED AND ANY DISCOMFORT. ALL DUE MEDS GIVEN AND ALL NEEDS MET. GOT ORDERED FROM [facility] TO NEY MORIN PT REQUESTED. URINATE WELL AFTER GIVING LASIX ROXANA IVP. PT STILL ON 4LITERS O2 WITH HUMIDIFIER FOR PT COMFORT. KEPT HIM WARM AND COMFORTABLE AT ALL TIMES. WOUND CARE CONSULT ORDERED. TELE A-FIB HEART WITH PVC'S HEART RATE 91 . ENDORSE TO AM NURSE FOR CONTINUITY OF CARE. PLACE CALL LIGHT AT REACH.
--- NOTE | 2017-09-27 07:30 | NUR ---
RATER ASSOCIATE NOTES PATIENT RECEIVED AWAKE, ALERT, AND ORIENTED. ABLE TO MAKE NEEDS KNOWN AND FOLLOW SIMPLE INSTRUCTIONS. PATIENT BREATHING EVEN AND UNLABORED. NO SOB OR DISTRESS NOTED AT THIS TIME. PATIENT AFEBRILE, SKIN DRY AND WARM TO TOUCH. BED LOCKED AND IN LOW POSITION, BILATERAL UPPER SIDE RAILS UP AND LOCKED. CALL LIGHT WITHIN EASY REACH. WILL CONTINUE TO MONITOR
[2017-09-27 07:32] LABS: BASOPHILS % (AUTO) 0.6 % (0.0-2.0); EOSINOPHILS # (AUTO) 0.4 /CMM (0.0-0.7); EOSINOPHILS % (AUTO) 4.6 % (0.0-6.0); HEMATOCRIT 37 % (39-51); HEMOGLOBIN 12.4 g/dL (13.5-17.5); LYMPHOCYTES # (AUTO) 1.1 /CMM (0.8-4.8); LYMPHOCYTES % (AUTO) 13.3 % (20.0-44.0); MEAN CORPUSCULAR HEMOGLOBIN 33 PG (26.0-33.0); MEAN CORPUSCULAR HGB CONC 33 g/dl (31.0-36.0); MEAN CORPUSCULAR VOLUME 100 fL (80-96); MONOCYTES # (AUTO) 0.5 /CMM (0.1-1.30); MONOCYTES % (AUTO) 5.7 % (2.0-12.0); NEUTROPHILS # (AUTO) 6.5 /CMM (1.8-8.9); NEUTROPHILS % (AUTO) 75.8 % (43.0-81.0); PLATELET COUNT (AUTO) 167 /CMM (150-450); RDW COEFFICIENT OF VARIATION 15.6 (11.5-15.0); RED BLOOD CELL COUNT(AUTO) 3.73 MIL/uL (4.5-6.0); WHITE BLOOD COUNT (AUTO) 8.5 K/uL (4.3-11.0)
[2017-09-27 07:46] LABS: TROPONIN I < 0.017 ng/mL (0.00-0.056)
[2017-09-27 07:53] LABS: ALANINE AMINOTRANSFERASE 24 U/L (12-78); ALBUMIN 3.2 g/dL (3.4-5.0); ALKALINE PHOSPHATASE 69 U/L (46-116); ASPARTATE AMINOTRANSFERASE 18 U/L (15-37); BILIRUBIN,TOTAL 1.3 mg/dL (0.2-1.0); CALCIUM, SERUM 8.7 mg/dL (8.5-10.1); CARBON DIOXIDE 36 mmol/L (21-32); CHLORIDE 106 mmol/L (98-107); GLUCOSE 105 mg/dL (74-106); MAGNESIUM 1.8 mg/dL (1.8-2.4); PHOSPHORUS 3.5 mg/dL (2.5-4.9); POTASSIUM 3.5 mmol/L (3.5-5.1); SODIUM SERUM 147 mmol/L (136-145); TOTAL PROTEIN, SERUM 7.7 g/dL (6.4-8.2); UREA NITROGEN, BLOOD 14 mg/dL (7-18)
[2017-09-27 08:00] VITALS: BP 130/76
[2017-09-27] MEDS ORDERED: POTASSIUM CHLORIDE 20 MEQ TAB.PRT.SR PO SCH (09:00)
--- NOTE | 2017-09-27 09:00 | NUR ---
INTERACTIVE WEB DEVELOPER NOTES PATIENT SEEN AND EXAMINED BY DR. MAGALLANES, NEW ORDERS NOTED AND CARRIED OUT
[2017-09-27] MEDS: POTASSIUM CHLORIDE 20 MEQ TAB.PRT.SR PO SCH ×3 (09:06→10:57)
[2017-09-27] MEDS: DOCUSATE SODIUM 100 MG CAPSULE PO SCH (09:07)
[2017-09-27] MEDS: DILTIAZEM HCL 30 MG TABLET PO SCH ×3 (09:07→16:45)
[2017-09-27] MEDS: CARVEDILOL 3.125 MG TABLET PO SCH ×2 (09:07→16:38)
--- NOTE | 2017-09-27 11:00 | NUR ---
MS RN NOTES RENNER CATHETER INSERTED, F 16, URINE OUTPUT YELLOW IN COLOR. SECURED IN PLACE. WILL CONTINUE TO MONITOR
[2017-09-27] MEDS: DIGOXIN 0.125 MG TABLET PO SCH (12:42)
[2017-09-27 16:00] VITALS: BP 114/58
[2017-09-27] MEDS: WARFARIN SODIUM 2 MG TABLET PO SCH (16:47)
--- NOTE | 2017-09-27 18:19 | NUR ---
MS RN NOTES PATIENT AWAKE, ALERT AND ORIENTED. ABLE TO MAKE NEEDS KNOWN AND FOLLOW SIMPLE INSTRUCTIONS. PATIENT BREATHING EVEN AND UNLABORED. DENIES ANY PAIN OR DISCOMFORT. PATIENT AFEBRILE, SKIN DRY AND WARM TO TOUCH. RENNER CATHETER IN PLACE AND DRAINING WELL, URINE OUTPUT CLEAR YELLOW. NO CHANGES IN LOC NOTED. IV SITE ON RIGHT AC, NO SWELLING OR DISCOLORATION NOTED. ALL NURSING NEEDS ATTENDED AND MET. ALL DUE MEDICATIONS GIVEN AND TOLERATED WELL. PROVIDED WITH CALM, SAFE, HAZARD-FREE ENVIRONMENT. BED LOW AND LOCKED, BILATERAL UPPER SIDE RAILS UP AND LOCKED. WILL CONTINUE TO MONITOR
--- NOTE | 2017-09-27 18:24 | NUR ---
MS RN NOTES RENNER OUTPUT OF 2300 CC NOTED
--- NOTE | 2017-09-27 19:30 | NUR ---
MS AGRICULTURAL PLOW OPERATOR INITIAL NOTES RECEIVED PT IN BED RESTING ON SITTING POSITION INSIDE HIS BED WITH O2 AT 4LITERS WITH HUMUDIFIER , NO SOB NOTED AT THIS TIME BREATHING EVEN AND NON-LABORED. SKIN WARM AND DRY TO TOUCH. STILL HAVE EDEMA ON BOTH LOWER EXTREMITIES. RENNER TO GRAVITY WITH CLEAR YELLOW OUTPUT NOTED. PT AWARE THAT HE CAN'T HAVE TRAPEZE PT ORDERED. DENIES ANY PAIN OR ANY DISCOMFORT. KEPT HIM WARM AND COMFORTABLE AT ALL TIMES. PLACE CALL LIGHT AT REACH. WILL CONTINUE MONITORING.
[2017-09-27 20:00] VITALS: BP 124/67
[2017-09-27] MEDS: NYSTATIN TOP POWDER 15 GM BOTTLE TP SCH (21:34)
[2017-09-27] MEDS: TRAZODONE 50 MG TABLET PO SCH ×2 (21:34→21:36)
--- NOTE | 2017-09-28 06:55 | NUR ---
MS MOLD CONSTRUCTION SUPERVISOR CLOSING NOTES PT WOKE UP AND MORNING CARE RENDERED WITH THE HELPED OF ELIU BENITESULATE, PT DENIES ANY PAIN OR ANY DISCOMFORT. NO SIGNS OF ANY ACUTE DISTRESS NOTED ROXANA THE NIGHT. DUE MED GIVEN AND ALL NEEDS MET. STILL ON O2 AT 4LITES VIA NC WITH HUMIDIFIER FOR PT COMFORT. STILL OFFLOAD BILATERAL LOWER EXTREMITIES BECAUSE STILL EDEMA PRESENT BUT LOOK BETTER THAN BEFORE ,SKIN TREATMENT ALSO DONE. PT ALSO STATED HE FEEL MUCH BETTER. KEPT HIM WARM AND COMFORTABLE AT ALL TIMES. PLACE CALL LIGHT AT REACH. PT REQUESTED IF POSSIBLE HE CAN HAVE A NASAL SPRAY. ENDORSE TO AM NURSE FOR CONTINUITY OF CARE.
[2017-09-28 07:21] LABS: BASOPHILS # (AUTO) 0.1 /CMM (0.0-0.2); BASOPHILS % (AUTO) 0.8 % (0.0-2.0); EOSINOPHILS # (AUTO) 0.2 /CMM (0.0-0.7); EOSINOPHILS % (AUTO) 2.9 % (0.0-6.0); HEMATOCRIT 35 % (39-51); HEMOGLOBIN 11.5 g/dL (13.5-17.5); LYMPHOCYTES # (AUTO) 1.2 /CMM (0.8-4.8); LYMPHOCYTES % (AUTO) 14.5 % (20.0-44.0); MEAN CORPUSCULAR HEMOGLOBIN 33 PG (26.0-33.0); MEAN CORPUSCULAR HGB CONC 33 g/dl (31.0-36.0); MEAN CORPUSCULAR VOLUME 101 fL (80-96); MONOCYTES # (AUTO) 0.6 /CMM (0.1-1.30); MONOCYTES % (AUTO) 6.9 % (2.0-12.0); NEUTROPHILS # (AUTO) 6.1 /CMM (1.8-8.9); NEUTROPHILS % (AUTO) 74.9 % (43.0-81.0); PLATELET COUNT (AUTO) 149 /CMM (150-450); RDW COEFFICIENT OF VARIATION 15.1 (11.5-15.0); WHITE BLOOD COUNT (AUTO) 8.1 K/uL (4.3-11.0)
--- NOTE | 2017-09-28 07:30 | NUR ---
MS/RN OPENING NOTE RECEIVED THE PT SITTING UP IN BED. DENIES PAIN AT THIS TIME. ON OXYGEN AT 4L/MIN VIA NC. RESPIRATION REGULAR AND UNLABORED. DENIES SOB AT THIS TIME. IN NO APPARENT DISTRESS. NOTED BLE +4. ENCOURAGED TO OFFLOAD THE FEET. THE PATIENT DENIED OFFLOADING AT THIS TIME. WILL CONTINUE TO ENCOURAGE. RAC G 20 PATENT AND SALINE LOCKED. BED LOW AND LOCKED. SIDE RAILS UP X2. CALL LIGHT WITHIN REACH. WILL CONTINUE TO MONITOR.
[2017-09-28 07:47] LABS: ALANINE AMINOTRANSFERASE 9 U/L (12-78); ALKALINE PHOSPHATASE 67 U/L (46-116); ASPARTATE AMINOTRANSFERASE 15 U/L (15-37); BILIRUBIN,TOTAL 0.9 mg/dL (0.2-1.0); CALCIUM, SERUM 8.7 mg/dL (8.5-10.1); CARBON DIOXIDE 35 mmol/L (21-32); CHLORIDE 103 mmol/L (98-107); GLUCOSE 105 mg/dL (74-106); MAGNESIUM 1.9 mg/dL (1.8-2.4); PHOSPHORUS 3.8 mg/dL (2.5-4.9); POTASSIUM 3.5 mmol/L (3.5-5.1); SODIUM SERUM 145 mmol/L (136-145); TOTAL PROTEIN, SERUM 7.2 g/dL (6.4-8.2); UREA NITROGEN, BLOOD 15 mg/dL (7-18)
[2017-09-28 08:00] VITALS: BP 111/59
[2017-09-28] MEDS: CARVEDILOL 3.125 MG TABLET PO SCH ×2 (09:00→17:12)
[2017-09-28] MEDS: DILTIAZEM HCL 30 MG TABLET PO SCH ×3 (09:00→17:12)
[2017-09-28] MEDS: DOCUSATE SODIUM 100 MG CAPSULE PO SCH (09:05)
[2017-09-28] MEDS: POTASSIUM CHLORIDE 20 MEQ TAB.PRT.SR PO SCH ×3 (09:05→11:30)
[2017-09-28] MEDS: FUROSEMIDE 100 MG/10 ML VIAL IV SCH ×3 (09:05→17:11)
[2017-09-28] MEDS: NYSTATIN TOP POWDER 15 GM BOTTLE TP SCH ×2 (09:21→17:15)
--- NOTE | 2017-09-28 09:49 | NUR ---
WOUND CARE CONSULT WOUND CONSULT RECEIVED FOR CELLULITIS ON BILATERAL LE, LEFT FOOT WOUND AND RIGHT ELBOW WOUND. WOUND CARE WILL DEFER TO SURGICAL TEAM AT THIS TIME THEY ARE FOLLOWING. PATIENT WITH TAWANDA AT 17. TREATMENT PLANS NOTED TO BE IN PLACE. ALL PRESSURE ULCER PREVENTION MEASURES NOTED TO BE IN PLACE.
[2017-09-28] MEDS ORDERED: Z GUARD REMEDY 2 OZ OINT TP PRN (10:00)
[2017-09-28 11:54] LABS: INR 1.86 (0.87-1.13)
[2017-09-28] MEDS: DIGOXIN 0.125 MG TABLET PO SCH (13:19)
[2017-09-28 16:00] VITALS: BP 128/72
[2017-09-28] MEDS: WARFARIN SODIUM 2 MG TABLET PO SCH (17:15)
[2017-09-28] MEDS ORDERED: SALINE NASAL SPRAY 0.65% 1 BOTTLE BOTTLE NS PRN (18:30)
--- NOTE | 2017-09-28 18:30 | NUR ---
MS/RN CLOSING NOTE PATIENT IN BED AWAKE. ALERT AND ORIENTED X3. RESPIRATION REGULAR AND UNLABORED. DENIES SOB, PAIN. IN NO APPARENT DISTRESS. BED LOW AND LOCKED. SIDE RAILS UP X3. CALL LIGHT WITHIN REACH. WILL ENDORSE TO NIGH SHIFT.
--- NOTE | 2017-09-28 19:53 | NUR ---
MS JORGE INITIAL NOTES SEEN PT IN BED AWAKE AND ALERT SITTING AT THE SIDE OF THE BED WHILE WATCHING TV. DENIES ANY PAIN OR ANY DISCOMFORT. NO SOB NOTED , HE STILL WITH O2 AT 4 LITERS VIA NASAL CANULA. STILL EDEMA NOTED ON HIS LOWER EXTREMITIES. PT STATED HE MUCH FEEL BETTER THAN BEFORE. ENCOURAGE HIM TO USED THE CALL LIGHT SYSTEM IF HE NEEDS SOME HELPED OR ASSISTANCE. PLACE CALL LIGHT AT REACH. KEPT HIM WARM AND COMFORTABLE AT ALL TIMES. WILL CONTINUE TO MONITOR.
[2017-09-28 20:00] VITALS: BP 95/50
[2017-09-28] MEDS: TRAZODONE 50 MG TABLET PO SCH (22:16)
[2017-09-28] MEDS: MUPIROCIN OINT 2% 22 GM TUBE SCH (22:16)
[2017-09-29 06:33] LABS: BASOPHILS % (AUTO) 0.3 % (0.0-2.0); EOSINOPHILS # (AUTO) 0.3 /CMM (0.0-0.7); EOSINOPHILS % (AUTO) 3.4 % (0.0-6.0); HEMATOCRIT 37 % (39-51); HEMOGLOBIN 12.1 g/dL (13.5-17.5); LYMPHOCYTES # (AUTO) 1.4 /CMM (0.8-4.8); MEAN CORPUSCULAR HEMOGLOBIN 33 PG (26.0-33.0); MEAN CORPUSCULAR HGB CONC 33 g/dl (31.0-36.0); MEAN CORPUSCULAR VOLUME 101 fL (80-96); MONOCYTES # (AUTO) 0.8 /CMM (0.1-1.30); MONOCYTES % (AUTO) 9.1 % (2.0-12.0); NEUTROPHILS # (AUTO) 6.2 /CMM (1.8-8.9); NEUTROPHILS % (AUTO) 71.2 % (43.0-81.0); PLATELET COUNT (AUTO) 155 /CMM (150-450); RDW COEFFICIENT OF VARIATION 15.8 (11.5-15.0); RED BLOOD CELL COUNT(AUTO) 3.66 MIL/uL (4.5-6.0); WHITE BLOOD COUNT (AUTO) 8.7 K/uL (4.3-11.0)
[2017-09-29 06:53] LABS: ALANINE AMINOTRANSFERASE 17 U/L (12-78); ALBUMIN 3.1 g/dL (3.4-5.0); ALKALINE PHOSPHATASE 64 U/L (46-116); ASPARTATE AMINOTRANSFERASE 16 U/L (15-37); BILIRUBIN,TOTAL 0.8 mg/dL (0.2-1.0); CALCIUM, SERUM 8.8 mg/dL (8.5-10.1); CARBON DIOXIDE 38 mmol/L (21-32); CHLORIDE 103 mmol/L (98-107); CREATININE 1.1 mg/dL (0.6-1.3); GLUCOSE 109 mg/dL (74-106); MAGNESIUM 1.9 mg/dL (1.8-2.4); POTASSIUM 3.7 mmol/L (3.5-5.1); SODIUM SERUM 144 mmol/L (136-145); TOTAL PROTEIN, SERUM 7.5 g/dL (6.4-8.2); UREA NITROGEN, BLOOD 19 mg/dL (7-18)
--- NOTE | 2017-09-29 07:00 | NUR ---
MS CHIEF SCHOOL FINANCE OFFICER CLOSING NOTES PT REMAINS RESTING IN THE CHAIR WITHOUT ANY ACUTE DISTRESS NOTED. AROUSES TO TOUCH . DENIES ANY PAIN OR ANY DISCOMFORT. REFUSED TO TAKE HIS DAILY WT AT THIS TIME. HE STATED DO IT AFTER BREAKFAST WANTS TO REST MORE. AWARE THAT HE NEEDS HIS LOWER LEGS UP MUCH POSSIBLE. WOUND TREATMENT DONE WELL KAREN WRAP APPLIED. ENDORSE TO AM NURSE. PLACE CALL LIGHT AT REACH.
--- NOTE | 2017-09-29 07:26 | NUR ---
MS/RN OPENING NOTE RECEIVED PATIENT SITTING UP ON CHAIR. ALERT AND ORIENTED X3. DENIES SOB, PAIN AT THIS TIME. RESPIRATION REGULAR AND UNLABORED. IN NO APPARENT DISTRESS. BLE +4 NOTED. ENCOURAGED TO ELEVATED THE FEET HOWEVER, THE PATIENT REFUSED AT THIS TIME. JOSÉ MIGUEL Smith 20 PATENT. CALL LIGHT WITHIN REACH. WILL CONTINUE TO MONITOR.
[2017-09-29 08:00] VITALS: BP 122/71
[2017-09-29] MEDS: DOCUSATE SODIUM 100 MG CAPSULE PO SCH (08:48)
[2017-09-29] MEDS: CARVEDILOL 3.125 MG TABLET PO SCH ×2 (08:49→17:00)
[2017-09-29] MEDS: DILTIAZEM HCL 30 MG TABLET PO SCH ×3 (08:49→17:00)
[2017-09-29] MEDS: NYSTATIN TOP POWDER 15 GM BOTTLE TP SCH ×2 (08:49→18:13)
[2017-09-29] MEDS: MUPIROCIN OINT 2% 22 GM TUBE SCH ×2 (08:50→21:12)
[2017-09-29] MEDS: FUROSEMIDE 100 MG/10 ML VIAL IV SCH ×3 (10:20→18:13)
[2017-09-29] MEDS: POTASSIUM CHLORIDE 20 MEQ TAB.PRT.SR PO SCH ×2 (10:20→11:18)
[2017-09-29] MEDS: METOLAZONE 2.5 MG TABLET PO SCH (10:20)
--- NOTE | 2017-09-29 10:39 | NUR ---
MS/RN NOTE DR ARRIOLA MADE AWARE OF 09/29/17 DAILY WEIGHT OF 289.4 AND THAT PATIENT WEIGHT ON 09/28/17 WAS 286. MD WITH NO NEW ORDERS.
[2017-09-29 10:49] LABS: INR 1.84 (0.87-1.13)
--- NOTE | 2017-09-29 11:39 | NUR ---
MS/RN NOTE RECEIVED NEW VERBAL ORDER FROM DR ARRIOLA. NOTED AND CARRIED OUT.
[2017-09-29] MEDS: DIGOXIN 0.125 MG TABLET PO SCH (13:49)
[2017-09-29 16:00] VITALS: BP_SYST 110; BP_SYST 135; BP_DIAS 68; BP_DIAS 90
--- NOTE | 2017-09-29 19:12 | NUR ---
MS/RN CLOSING NOTE PATIENT SITTING IN THE EDGE OF THE BED. ALERT AND ORIENTED X4. RESPIRATION REGULAR AND UNLABORED. DENIES SOB, PAIN AT THIS TIME. IN NO APPARENT DISTRESS. FC DRAINING CLEAR, YELLOW COLOR URINE. NO BLADDER DISTENSION NOTED. BLE EDEMA +4 STILL NOTED. ASSISTED WITH ADL. GOOD SKIN CARE RENDERED. ALL NEEDS ATTENDED. BED LOW AND LOCKED. SIDE RAILS UP X2. CALL LIGHT WITHIN REACH. WILL ENDORSE TO NIGH SHIFT.
[2017-09-29] MEDS: WARFARIN SODIUM 5 MG TABLET PO SCH (19:17)
[2017-09-29 20:00] VITALS: BP 109/61
--- NOTE | 2017-09-29 20:00 | NUR ---
MS/LUMBER TALLIER; RECEIVED PT SITTING IN BED . BREATHING NON LABORED. WITH O2 4L NC ON. HL ON RAC FLUSHED WITH NS INTACT AND PATENT. BOTH LOWER LEGS AND FEET ARE SWOLLEN PT ENCOURAGED TO KEEP HIS LEGS ELEVATED WHILE IN BED AND HE OK. FC INTACT WITH CLEAR YELLOW URINE .BED ON LOWER POSITION AMND
--- NOTE | 2017-09-29 20:00 | NUR ---
MS/NEURODIAGNOSTIC TECHNOLOGIST; RECEIVED PT SITTING IN BED AWAKE , ALERT AND ORIENTED. BREATHING NON LABORED. WITH O2 4L NC ON. HL ON RAC FLUSHED WITH NS INTACT AND PATENT. BOTH LEGS ARE SWOLLEN AND PT ENCOURAGED TO KEEP HIS LEGS ELEVATED AND HE SAID OK. FC INTACT WITH CLEAR YELLOW URINE. BED ON LOWER POSITION AND LOCKED FOR SAFETY. SIDE RAILS UPPER PART OF BED ARE UP FOR SAFETY. CALL LIGHT WITHIN REACH. WILL CONTINUE TO MONITOR.
--- NOTE | 2017-09-29 20:30 | NUR ---
MS/AUTOMOTIVE TIRE TESTER; PT ASSISTED BY THE AUDIT CONSULTANT TO GO BACK TO BED.
--- NOTE | 2017-09-29 21:00 | NUR ---
MS/FLIGHT TEST ENGINEER; PT WANTS DRESSING TO BE CHANGED ON HIS LT FOOT ; HE SAID IT WAS NOT DONE THIS MORNING . SO I DID CHANGED THE DRESSING ON LT FOOT. PT HAS BEEN ENCOURAGED TO KEEP HIS BOTH LEGS BE ELEVATED WITH PILLOWS WHILE IN BED WHICH ELEVATED NOW.
--- NOTE | 2017-09-29 22:00 | NUR ---
MS/TRANSMITTER ENGINEER IN CHARGE; DUE PO MED . GIVEN ABLE TO SWALLOW WITHOUT PROBLEM.
[2017-09-29] MEDS: TRAZODONE 50 MG TABLET PO SCH (22:30)
--- NOTE | 2017-09-30 00:05 | NUR ---
MS/GAS SHOVEL OPERATOR; PT RE CHECKED IN BED SLEEPING. HOB AT 45 DEGREES. BREATHING NON LABORED. WITH O2 4L NC ON. SIDE RAILS X 4 ARE UP FOR SAFETY. BOTH LEGS ARE ELEVATED ON PILLOWS.
--- NOTE | 2017-09-30 06:47 | NUR ---
MS/MEDIA REPORTER; PT SLEPT FAIRLY LAST NIGHT. WT BY BED SCALE 271 LBS. DENIES PAIN. CONTINUE TO MONITOR. CALL LIGHT WITHIN REACH. ON ISOLATION OBSERVED. WILL ENDORSE TO THE DAY SHIFT NURSE.
[2017-09-30 08:52] VITALS: BP 124/72
[2017-09-30] MEDS: DILTIAZEM HCL 30 MG TABLET PO SCH ×3 (08:54→17:04)
[2017-09-30] MEDS: CARVEDILOL 3.125 MG TABLET PO SCH ×2 (08:54→17:04)
[2017-09-30] MEDS: METOLAZONE 2.5 MG TABLET PO SCH (08:54)
[2017-09-30] MEDS: DOCUSATE SODIUM 100 MG CAPSULE PO SCH (08:54)
[2017-09-30] MEDS ORDERED: METHOTREXATE SODIUM (2.5MG) 2.5 MG TABLET PO SCH (09:00)
--- NOTE | 2017-09-30 09:00 | NUR ---
m/s sheet tester: cardio f/u seen and examined by dr. burciaga at this time.
[2017-09-30] MEDS: NYSTATIN TOP POWDER 15 GM BOTTLE TP SCH ×2 (09:02→17:04)
[2017-09-30 09:20] LABS: INR 1.94 (0.87-1.13)
--- NOTE | 2017-09-30 11:00 | NUR ---
m/s store promoter: sausage maker f/u seen and examined by dr. chambers at this time.
[2017-09-30] MEDS: FUROSEMIDE 80 MG TABLET PO SCH (11:03)
[2017-09-30] MEDS: POTASSIUM CHLORIDE 20 MEQ TAB.PRT.SR PO SCH (11:03)
[2017-09-30] MEDS: MUPIROCIN OINT 2% 22 GM TUBE SCH ×2 (11:06→21:35)
--- NOTE | 2017-09-30 12:30 | NUR ---
m/s expansion joint finisher: plastic surgeon f/u seen by mima (gildardo) at this time.
[2017-09-30] MEDS: DIGOXIN 0.125 MG TABLET PO SCH (13:16)
--- NOTE | 2017-09-30 13:30 | NUR ---
m/s bevel gear generator operator: notes wound care done as ordered. instructed to call for assistance. will continue to monitor.
--- NOTE | 2017-09-30 14:00 | NUR ---
m/s steel tester: md visit seen by dr. marcus at this time. instructed to call for assistance. will continue to monitor.
[2017-09-30 15:48] VITALS: BP 111/65
[2017-09-30] MEDS: WARFARIN SODIUM 5 MG TABLET PO SCH (17:05)
--- NOTE | 2017-09-30 17:05 | NUR ---
m/s conductor freight: notes coumadin 5mg po given as ordered, inr 1.94 today. instructed to call for assistance. will continue to monitor.
--- NOTE | 2017-09-30 18:30 | NUR ---
m/s sql server architect: notes resting comfortable in bed with no distress noted. needs attended. will continue to monitor.
--- NOTE | 2017-09-30 19:51 | NUR ---
RN OPENING NOTES RECEIVED REPORT FROM [facility] JORGE GAGE. FOUND Pt AWAKE, RESTING IN BED. NO S/S OF ACUTE DISTRESS OR SOB NOTED. Pt IS A/OX4, VERBAL, ABLE TO MAKE NEEDS KNOWN. IV ACCESS ON SAFETY MEASURES IN PLACE. BED LOW, LOCKED, HOB ELEVATED, SIDE RAILS UP, CALL LIGHT AND BEDSIDE TABLE WITHIN REACH. WILL CONTINUE TO MONITOR Pt THROUGHOUT THE NIGHT FOR SAFETY. Addendum: 09/30/17 at 2309 by NICHOL NÚÑEZ RN IV ACCESS ON RAC#20G, SL.
[2017-09-30 20:00] VITALS: BP 109/59
[2017-09-30] MEDS: TRAZODONE 50 MG TABLET PO SCH (21:32)
[2017-09-30] MEDS: HYDROCODONE/APAP 5/325MG 1 EACH TABLET PO PRN (21:35)
[2017-10-01] MEDS: HYDROCODONE/APAP 5/325MG 1 EACH TABLET PO PRN ×2 (06:28→13:15)
--- NOTE | 2017-10-01 06:53 | NUR ---
RN CLOSING NOTES NO SIGNIFICANT CHANGES IN Pt's CONDITION. Pt REMAINS STABLE AT THIS TIME. NO S/S OF ACUTE DISTRESS OR SOB NOTED DURING THE NIGHT. ALL NEEDS MET AND ATTENDED TO. SAFETY MEASURES IN PLACE. WILL ENDORSE TO DAYSHIFT RN FOR Pt's JJ.
[2017-10-01 08:00] VITALS: BP 113/68
[2017-10-01] MEDS: FUROSEMIDE 80 MG TABLET PO SCH (08:20)
[2017-10-01] MEDS: DOCUSATE SODIUM 100 MG CAPSULE PO SCH (08:20)
[2017-10-01] MEDS: METOLAZONE 2.5 MG TABLET PO SCH (08:20)
[2017-10-01] MEDS: POTASSIUM CHLORIDE 20 MEQ TAB.PRT.SR PO SCH ×4 (08:20→13:53)
[2017-10-01] MEDS: MUPIROCIN OINT 2% 22 GM TUBE SCH (08:26)
[2017-10-01 09:17] LABS: BASOPHILS % (AUTO) 0.3 % (0.0-2.0); EOSINOPHILS # (AUTO) 0.4 /CMM (0.0-0.7); EOSINOPHILS % (AUTO) 4.9 % (0.0-6.0); HEMATOCRIT 36 % (39-51); HEMOGLOBIN 12.1 g/dL (13.5-17.5); LYMPHOCYTES # (AUTO) 1.4 /CMM (0.8-4.8); LYMPHOCYTES % (AUTO) 16.6 % (20.0-44.0); MEAN CORPUSCULAR HEMOGLOBIN 33 PG (26.0-33.0); MEAN CORPUSCULAR HGB CONC 33 g/dl (31.0-36.0); MEAN CORPUSCULAR VOLUME 100 fL (80-96); MONOCYTES # (AUTO) 0.6 /CMM (0.1-1.30); MONOCYTES % (AUTO) 7.2 % (2.0-12.0); NEUTROPHILS # (AUTO) 5.9 /CMM (1.8-8.9); PLATELET COUNT (AUTO) 174 /CMM (150-450); RDW COEFFICIENT OF VARIATION 15.2 (11.5-15.0); RED BLOOD CELL COUNT(AUTO) 3.64 MIL/uL (4.5-6.0); WHITE BLOOD COUNT (AUTO) 8.3 K/uL (4.3-11.0)
[2017-10-01 09:50] LABS: ALANINE AMINOTRANSFERASE 17 U/L (12-78); ALBUMIN 3.1 g/dL (3.4-5.0); ALKALINE PHOSPHATASE 68 U/L (46-116); ASPARTATE AMINOTRANSFERASE 14 U/L (15-37); BILIRUBIN,TOTAL 0.9 mg/dL (0.2-1.0); CALCIUM, SERUM 9.3 mg/dL (8.5-10.1); CHLORIDE 97 mmol/L (98-107); CREATININE 1.2 mg/dL (0.6-1.3); GLUCOSE 155 mg/dL (74-106); MAGNESIUM 1.7 mg/dL (1.8-2.4); PHOSPHORUS 3.4 mg/dL (2.5-4.9); POTASSIUM 2.9 mmol/L (3.5-5.1); SODIUM SERUM 141 mmol/L (136-145); TOTAL PROTEIN, SERUM 7.4 g/dL (6.4-8.2); UREA NITROGEN, BLOOD 24 mg/dL (7-18)
[2017-10-01 09:53] LABS: CARBON DIOXIDE 44 mmol/L (21-32)
--- NOTE | 2017-10-01 10:18 | NUR ---
RN NOTES DR ARRIOLA AWARE OF CO2 44
[2017-10-01] MEDS: CARVEDILOL 3.125 MG TABLET PO SCH (10:21)
[2017-10-01] MEDS: DILTIAZEM HCL 30 MG TABLET PO SCH ×2 (10:21→13:00)
--- NOTE | 2017-10-01 11:10 | NUR ---
rn notes: PATIENT SPO2 AT 84% ON ROOM AIR UPON AMBULATION. PATIENT ON 3L NASAL CANNULA, WITH SPO2 OF 95% NONLABORED BREATHING NOTED NYSTATIN POWDER ORDERED FROM [facility]
[2017-10-01] MEDS: Magnesium 1GM/D5W 100ML PREMIX 100 ML IV SCH ×2 (11:13→12:29)
[2017-10-01 11:53] LABS: INR 2.08 (0.87-1.13)
[2017-10-01] MEDS: NYSTATIN TOP POWDER 15 GM BOTTLE TP SCH (12:00)
[2017-10-01 13:00] VITALS: BP 118/68
[2017-10-01] MEDS: DIGOXIN 0.125 MG TABLET PO SCH (13:53)
--- NOTE | 2017-10-01 14:30 | NUR ---
RN NOTES: PATIENT DISCHARGED TO [facility]. PATIENT PICKED UP BY DAUGHTER AND SON IN [place]. PATIENT AOX4 UNABLE TO GET HOLD OF STAFF AT [facility], EXPLAINED ALL OF EXISTCARE INSTURCTIONS TO DAUGHTER AND PATIENT WHO BOTH VERBALIZED UNDERSTANDING. PRESCRIPTION GIVEN TO PATIENT. PATIENT REFUSED LOWER EXTREMITY WOUND CARE TO BE DONE BEFORE LEAVING, EXPLAINED BENEFITS AND RISKS TO PATIENT. PATIENT REFUSED SKIN PICTURES WELL. IV LINE REMOVED. ALL VALUABLES RETURNED TO PATIENT. ELECTROLYTES REPLACED PRIOR TO DISCHARGE. PATIENT WAS ABLE TO AMBULATE WITH ASSISTANCE THROUGHOUT SHIFT, SPO2 WNL AT 3 L. OXYGEN ORDERED TO BE UTILIZED AT ME. PATIENT DENYING PAIN AT DISCHARGE MOMENT. PATIENT LEFT WITH DAUGHTER AND SON IN [place]. NO SOB NOTED VS WNL
== END 2017-10-01 14:30 | DRG 291 ==
LOC: ER 18:40 → TELE 20:17 → MED 09-27 09:39
PROVIDERS: ADMIT Internal Medicine; ATTEND Internal Medicine
DX: I11.0 Hypertensive heart disease with heart failure (principal); J96.20 Acute and chronic respiratory failure, unspecified whether with hypoxia or hypercapnia; E44.0 Moderate protein-calorie malnutrition; E87.0 Hyperosmolality and hypernatremia; D68.59 Other primary thrombophilia; E66.01 Morbid (severe) obesity due to excess calories; G62.9 Polyneuropathy, unspecified; I48.2 Chronic atrial fibrillation; J44.1 Chronic obstructive pulmonary disease with (acute) exacerbation; Z68.41 Body mass index [BMI] 40.0-44.9, adult; L89.020 Pressure ulcer of left elbow, unstageable; L89.010 Pressure ulcer of right elbow, unstageable; D64.9 Anemia, unspecified; E11.9 Type 2 diabetes mellitus without complications; I50.23 Acute on chronic systolic (congestive) heart failure; E03.9 Hypothyroidism, unspecified; E78.5 Hyperlipidemia, unspecified; I87.2 Venous insufficiency (chronic) (peripheral); K21.9 Gastro-esophageal reflux disease without esophagitis; L30.4 Erythema intertrigo; Z87.891 Personal history of nicotine dependence; Z96.649 Presence of unspecified artificial hip joint; I25.10 Atherosclerotic heart disease of native coronary artery without angina pectoris; Z88.0 Allergy status to penicillin; M10.9 Gout, unspecified; M48.00 Spinal stenosis, site unspecified; L98.8 Other specified disorders of the skin and subcutaneous tissue; Z22.322 Carrier or suspected carrier of Methicillin resistant Staphylococcus aureus; C61 Malignant neoplasm of prostate
CPT/HCPCS: 36415; 36600; 71045-TC; 80048-TC; 80053-TC; 80076-TC; 83735-TC; 83880; 84100-TC; 84484-TC; 85025-TC; 85610-TC; 85730-TC; 87081-TC; 94799-TC; 97116-TC; 97530-TC; A4606; A6402; J1940; J3475; J7040; J8610; Z7610